=== PATIENT | male | born 1990 | race Two or more races ===

== ENCOUNTER 2024-11-20 03:17 | Emergency (ER) | payer MEDICAID ==
[~2024-11-20] VITALS: Ht 172.7 cm; Wt 83.9 kg
[2024-11-20] MEDS ORDERED: FLUORESCEIN SODIUM OPHTH 1 EA STRIP ONE (03:34)
[2024-11-20] MEDS ORDERED: KETO5DRO83 RIGHTEYE (03:40)
[2024-11-20] MEDS ORDERED: CIPR2.5D14 RIGHTEYE (03:40)
[2024-11-20] MEDS: FLUORESCEIN SODIUM OPHTH 1 EA STRIP OP ONE (03:42)
[2024-11-20 03:43] VITALS: BP 132/81; TEMP 98.5; O2SAT 98
== END 2024-11-20 03:43 | disposition home or self-care (01) ==
LOC: ER 03:25
DX: S05.02XA Injury of conjunctiva and corneal abrasion without foreign body, left eye, initial encounter (principal); X58.XXXA Exposure to other specified factors, initial encounter; Y93.89 Activity, other specified; Y92.89 Other specified places as the place of occurrence of the external cause; Y99.8 Other external cause status

== ENCOUNTER 2024-11-20 22:26 | Emergency (ER) | payer MEDICAID ==
[~2024-11-20] VITALS: Ht 177.8 cm; Wt 81.6 kg
[~2024-11-20 22:26] MED LIST: CIPR2.5D14 RIGHTEYE; KETO5DRO83 RIGHTEYE
[2024-11-20 22:55] VITALS: BP 137/72; TEMP 98.1; O2SAT 98
[2024-11-21] MEDS ORDERED: FLUORESCEIN SODIUM OPHTH 1 EA STRIP OP ONE (00:30)
[2024-11-21] MEDS ORDERED: TETRACAINE HCL 0.5% OPHTALMIC 15 ML BOTTLE OP ONE (00:30)
[2024-11-21] MEDS ORDERED: KETOROLAC TROMETHAMINE INJ 30 MG/ML VIAL IM ONE (00:30)
== END 2024-11-21 00:57 | disposition left against medical advice (07) ==
LOC: ER 22:29
DX: S05.02XA Injury of conjunctiva and corneal abrasion without foreign body, left eye, initial encounter (principal); X58.XXXA Exposure to other specified factors, initial encounter; Y93.89 Activity, other specified; Y92.89 Other specified places as the place of occurrence of the external cause; Y99.8 Other external cause status